=== PATIENT | male | born 1990 | race Caucasian/White ===

== ENCOUNTER 2019-04-17 12:50 | Emergency (ER) | payer OTHER, MEDICAID ==
[~2019-04-17] VITALS: Ht 180.3 cm; Wt 102.5 kg
[2019-04-17 13:03] VITALS: Ht 180.3 cm; Wt 102.5 kg
[2019-04-17 14:49] VITALS: BP 150/99
== END 2019-04-17 14:49 | disposition home or self-care (01) ==
LOC: ED 12:50
DX: S43.51XA Sprain of right acromioclavicular joint, initial encounter (principal); W18.30XA Fall on same level, unspecified, initial encounter; Y93.64 Activity, baseball; Y92.89 Other specified places as the place of occurrence of the external cause; Y99.8 Other external cause status